=== PATIENT | female | born 1995 | race Caucasian/White ===

== ENCOUNTER 2016-07-13 19:13 | Emergency (ER) | payer OTHER ==
[~2016-07-13] VITALS: Ht 162.6 cm; Wt 70.0 kg
[~2016-07-13 19:13] MED LIST: ACET500C5 PO; ONDA4TAB8 PO; OSLT75C PO
[2016-07-13 19:15] VITALS: Ht 162.6 cm; Wt 70.0 kg
[2016-07-13] MEDS ORDERED: ONDANSETRON (ODT) 4 MG TAB ODT STA (19:32)
[2016-07-13] MEDS ORDERED: ALBU18HF INHALATION (19:34)
[2016-07-13] MEDS ORDERED: ONDA8TAB14 PO (19:34)
[2016-07-13] MEDS ORDERED: ACET500C5 PO (19:34)
--- NOTE | 2016-07-13 19:38 | ERD ---
ER Documentation Chief Complaint Date/Time DATE: 07/13/16 TIME: 19:36 Chief Complaint sore throat, cough, vomiting, nasal congestion HPI 21-year-old female presents with a one-day history of sore throat coughing and vomiting. She has a history of asthma and wheezing slightly. She denies any fevers, abdominal pain, diarrhea, neck stiffness, rashes. ROS All systems reviewed and are negative except as per history of present illness. Medications Home Meds Active Scripts Acetaminophen* (Tylophen*) 500 Mg Capsule, 1 CAP PO Q6H Y for PAIN AND OR ELEVATED TEMP, #15 CAP Prov:ANDREW CHRISTENSEN MD 07/13/16 Albuterol Sulfate* (Ventolin HFA*) 18 Gm Hfa.aer.ad, 2 PUFF INHALATION Q4H, #1 INHALER Prov:ANDREW CHRISTENSEN MD 07/13/16 Ondansetron (Ondansetron Odt) 8 Mg Tab.rapdis, 8 MG PO Q6H Y for NAUSEA AND/OR VOMITING, #8 TAB Prov:ANDREW CHRISTENSEN MD 07/13/16 Oseltamivir Phosphate* (Tamiflu*) 75 Mg Capsule, 75 MG PO BID for 5 Days, #10 CAP Prov:Edel Roberts PA-C 01/14/16 Ondansetron Hcl* (Zofran*) 4 Mg Tablet, 4 MG PO Q6H for NAUSEA AND/OR VOMITING, #30 TAB Prov:Edel Roberts PA-C 01/14/16 Acetaminophen* (Tylophen*) 500 Mg Capsule, 1 CAP PO Q6H Y for PAIN AND OR ELEVATED TEMP, #20 CAP Prov:Edel Roberts PA-C 01/14/16 Allergies Allergies: Coded Allergies: No Known Allergy (Unverified , 01/13/16) PMhx/Soc History of Surgery: No Anesthesia Reaction: No Hx Neurological Disorder: No Hx Cardiac Disorders: No Hx Psychiatric Problems: No Hx Miscellaneous Medical Probl: No Hx Alcohol Use: No Hx Tobacco Use: No Physical Exam Vitals Vital Signs Date Time Temp Pulse Resp B/P Pulse Ox O2 Delivery O2 Flow Rate FiO2 07/13/16 19:15 97.3 88 20 120/74 100 Physical Exam Const: [] Alert, [id number] per Head: Atraumatic Eyes: Normal Conjunctiva ENT: Normal External Ears, Nose and Mouth. TMs and oropharynx normal. Oropharynx grossly normal Neck: Full range of motion..~ No meningismus. Resp: Clear to auscultation bilaterally. Slight wheezy cough without significant wheeze or rales at rest and no retractions. Cardio: Regular rate and rhythm, no murmurs Abd: Soft, non tender, non distended. Normal bowel sounds Skin: No petechiae or rashes Back: No midline or flank tenderness Ext: No cyanosis, or edema Neur: Awake and alert Psych: Normal Mood and Affect Results 24 hrs Current Medications Medications (Trade) Dose Ordered Sig/Chelsey Route PRN Reason Start Time Stop Time Status Last Admin Dose Admin Dexamethasone (Decadron) 10 mg ONCE ONCE IM 07/13/16 20:00 07/13/16 20:01 Ondansetron HCl (Zofran Odt) 8 mg ONCE STAT ODT 07/13/16 19:32 07/13/16 19:33 DC Procedures/MDM Patient is given Zofran 8 mg by mouth. Patient was given Decadron 10 mg IM. Patient signs and symptoms of acute URI with vomiting. Patient states that the vomiting is emanates from a tickle in her throat and denies abdominal pain. The vomiting is likely posttussive patient signs and symptoms are consistent with a viral URI.. Patient just recently completed her menstrual period. Patient will be treated with Ventolin and Zofran and Tylenol home and further observation. Patient should return to the ER for any worsening symptoms over with primary doctor. . The patient was stable with no new complaints during the ER course. Clinically, there is no current evidence to suggest meningitis, sepsis, acute abdomen, pneumonia, acute coronary syndrome, pulmonary embolism, or any other emergent condition appearing to require further evaluation or hospitalization. The patient should certainly return for any new or worsening symptoms per the aftercare instructions. They should otherwise follow-up with her primary care doctor for reevaluation this week. Departure Diagnosis: Primary Impression: Vomiting Vomiting type: unspecified Vomiting Intractability: unspecified Nausea presence: unspecified Qualified Code: R11.10 - Vomiting, intractability of vomiting not specified, presence of nausea not specified, unspecified vomiting type Additional Impression: URI, acute Condition: Stable Patient Instructions: Uri, Viral W/ Wheezing (Adult), Vomiting (6Y-Adult) Additional Instructions: Likely viral illness may last 2-4 days. Recheck for new or worsening symptoms or primary care doctor. ANDREW CHRISTENSEN MD Jul 13, 2016 19:38
[2016-07-13] MEDS ORDERED: DEXAMETHASONE 10 MG/ML 1 ML INJ IM ONE (20:00)
== END 2016-07-13 20:17 | disposition home or self-care (01) ==
LOC: FTE 19:13
DX: R11.10 Vomiting, unspecified (principal); J06.9 Acute upper respiratory infection, unspecified; J45.909 Unspecified asthma, uncomplicated
CPT/HCPCS: 96372; J1100; Z7502; Z7610

== ENCOUNTER 2017-03-14 12:54 | Emergency (ER) | END 2017-03-14 17:01 | disposition home or self-care (01) ==